=== PATIENT | male | born 1990 | race Two or more races ===

== ENCOUNTER 2020-12-13 00:18 | Emergency (ER) | payer SELFPAY ==
[~2020-12-13] VITALS: Ht 172.7 cm; Wt 68.0 kg
[~2020-12-13 00:18] MED LIST: DIPH25TA26
[2020-12-13] MEDS ORDERED: ONDANSETRON ODT 4 MG TAB PO ONE (00:30)
[2020-12-13] MEDS ORDERED: ACETAMINOPHEN/CODEINE#3 (300/30mg) TAB PO ONE (00:30)
[2020-12-13 02:30] VITALS: BP 145/70
== END 2020-12-13 04:05 | disposition home or self-care (01) ==
LOC: ER 00:20
DX: S93.402A Sprain of unspecified ligament of left ankle, initial encounter (principal); X58.XXXA Exposure to other specified factors, initial encounter; Y93.89 Activity, other specified; Y92.89 Other specified places as the place of occurrence of the external cause; Y99.8 Other external cause status
CPT/HCPCS: 73610; 73630; 99284; Q0162

== ENCOUNTER 2020-12-19 17:46 | Emergency (ER) | payer OTHER ==
[~2020-12-19] VITALS: Ht 172.7 cm; Wt 68.9 kg
[2020-12-19] MEDS ORDERED: traMADol HCL 50 MG TAB PO ONE (18:15)
[2020-12-19] MEDS ORDERED: CLINDAMYCIN 600MG IV 50 ML IV ONE (19:15)
[2020-12-19 19:35] LABS: Basophils # (auto) 0 10 ^3/uL (0-0.2); Basophils % (auto) 0.3 % (0.0-2.0); Eosinophils # (auto) 0.3 10 ^3/uL (0-0.8); Eosinophils % (auto) 2.7 % (0.0-7.0); Hematocrit 43.7 % (41.0-53.0); Hemoglobin 14.5 g/dL (13.5-17.5); Lymphocytes # (auto) 1.6 10 ^3/uL (0.4-5.4); Lymphocytes % (auto) 12.9 % (10.0-50.0); Mean Corpuscular Hemoglobin 28.3 pg (28.0-32.0); Mean Corpuscular Hgb Conc. 33.3 g/dL (32.0-36.0); Mean Corpuscular Volume 85.1 fL (80.0-100.0); Monocytes # (auto) 0.9 10 ^3/uL (0-1.3); Monocytes % (auto) 6.9 % (0.0-12.0); Neutrophils # (auto) 9.9 10 ^3/uL (1.6-8.6); Neutrophils % (auto) 77.2 % (37.0-80.0); Nucleated Red Blood Cells % 0.2 %; Platelet Count (auto) 170 10^3/uL (140-450); Red Blood Cells 5.13 10^6/uL (4.5-5.90); White Blood Cell 12.8 10^3/uL (4.4-10.8)
[2020-12-19] MEDS ORDERED: HYDROcodone-ACET 5/325MG TAB PO ONE (22:00)
[2020-12-19 22:33] LABS: Calcium 9.2 mg/dL (8.5-10.1)
[2020-12-19 22:41] LABS: BUN/Creatinine Ratio 13.9; CRP High Sensitivity 3.6 mg/dL (< 0.3)
[2020-12-20] MEDS ORDERED: ONDANSETRON HCL 4 MG/2 ML VIAL IV ONE (01:30)
[2020-12-20] MEDS ORDERED: MORPHINE SULFATE 4 MG/ML SYR/VIAL IV ONE (01:30)
[2020-12-20 03:07] VITALS: BP 109/60
== END 2020-12-20 04:00 | disposition short-term general hospital (02) ==
LOC: ER 17:46
DX: L03.116 Cellulitis of left lower limb (principal); Z79.899 Other long term (current) drug therapy
CPT/HCPCS: 36415; 73700; 80048; 83605; 85025; 85652; 86141; 87040; 96365; 96366; 96375; 99285; J2270; J2405; J3490